=== PATIENT | female | born 1935 | race Caucasian/White ===

== ENCOUNTER 2016-03-19 07:18 | Day surgery (SDC) | payer MEDICARE, OTHER ==
[2016-03-18 15:20] LABS: HEMATOCRIT 39.2 % (36.0-48.0); MCH 31.3 pg (26.0-34.0); MCHC 33.2 g/dL (31.0-37.0); MCV 94.2 fL (80.0-100.0); MEAN PLATELET VOLUME 10.1 fL (7.4-10.4); RBC 4.16 10x6/uL (4.00-5.40); RDW 12.8 % (11.5-14.5); WBC 5.2 10x3/uL (4.8-10.8)
[~2016-03-19] VITALS: Ht 170.2 cm; Wt 71.7 kg
[~2016-03-19 07:18] MED LIST: ASCORBIC ACID500 MG PO; ELAVIL25 MG PO; FISH OIL 1,0001 CA1 PO; TENORMIN25 MG PO; VITAMIN D31000 UNI2 PO
[2016-03-19 10:19] VITALS: BP 194/95; Ht 170.2 cm; Wt 71.7 kg
--- NOTE | 2016-03-19 10:26 | NUR ---
PT VERY NERVOUSE NEW ORDER RECEIVED FOR 5MG OF VALIUM FROM DR MURPHY. PT GIVEN VALIUM ORDERED
--- NOTE | 2016-03-19 12:10 | NUR ---
1205: UNABLE TO REACH FAMILY EXT 2500,[id number],2517. TALKED TO ALLA IN OP THERE WAS NO ONE IN PT ROOM. PT STATED PRIOR TO SURGERY THAT HER MAY HAVE GONE TO GET SOMETHING TO EAT.
--- NOTE | 2016-03-19 14:57 | NUR ---
1420--IV DC'D, PT UP TO DRESS AT THIS TIME. ZACK ALVES 1446--DISCHARGE INSTRUCTIONS GIVEN, PT VERBALIZES UNDERSTANDING. PT OFF UNIT VIA WC. ZACK ALVES
--- NOTE | 2016-04-09 09:50 | OP ---
PATIENT NAME: NOE MATIAS MEDICAL RECORD: [id number] :37 LOCATION:[facility] ADMISSION DATE: SURGEON: SHAVON SMALLS DPM DATE OF OPERATION: 03/19/2016 PREOPERATIVE DIAGNOSES: 1. Plantar plate rupture, left second MPJ. 2. Hammertoe, left second digit. POSTOPERATIVE DIAGNOSES: 1. Plantar plate rupture, left second MPJ. 2. Hammertoe, left second digit. PROCEDURES: 1. Alanna osteotomy, left second metatarsal. 2. Plantar plate repair, left second MPJ. 3. PIPJ fusion, left 2nd digit. ANESTHESIA: Local with IV sedation utilizing lidocaine and Marcaine plain around the left second ray. HEMOSTASIS: Left thigh tourniquet at 350 mmHg. PREOPERATIVE DETAILS: The patient was taken to the OR and placed on the operating table in supine position. This was followed by induction of general anesthesia and infiltration of local anesthetic. The left extremity was prepped and draped in the usual aseptic technique followed by exsanguination of extremity and inflation of tourniquet. PROCEDURE NUMBER 1: Alanna osteotomy, left second digit. A 15-blade was used to create a 4 cm curvilinear incision extending from the middle of the second metatarsal shaft to the PIPJ of the second digit. The incision was deepened down through subcutaneous tissue. The extensor longus tendon was then transected in a Z fashion exposing the second MPJ. A linear capsulotomy was performed. The head of the second metatarsal was delivered. A McGlamry scoop elevator was used to free the plantar structures. A sagittal saw was then used to create a Alanna osteotomy from ____ distal to plantar proximal. The capital fragment was translocated proximal and temporarily fixated. PROCEDURE NUMBER 2: Plantar plate repair, left second MPJ. A second K-wire was placed in the shaft of the proximal phalanx of the second digit. A wire retractor was placed over the wires and the joint was distracted giving access. There was noted to be some rupture of the lateral aspect of the plantar plate. A 15 blade was used to complete the tear. A scorpion passer was then used to pass FiberWire through the plantar plate in 2 different points OF purchase 2 small drill holes were made in the base of the proximal phalanx of the second digit and the suture was passed up through the drill holes. At this time, the Alanna osteotomy as described in #1, was fixated with 2 popoff screws and the repair was complete by tying surgeon's knots with the FiberWire up through the base of the proximal phalanx of the second digit allowing excellent purchase and position of the 2nd digit at the MPJ in a nice rectus position. PROCEDURE NUMBER 3: PIPJ fusion, left 2nd digit. The incision as described in #1, was dissected down to the joint. The joint was delivered. A sagittal saw was used to resect the head of the proximal phalanx and the base of middle OPERATIVE REPORT [id number] NOE MATIAS phalanx. A 2.7 drill hole was then made in both, followed by the insertion of the bone graft with the capital fragment on top of the bone graft, noting excellent alignment and fixation on top of the bone graft. The wound was flushed. The capsule was repaired with 2-0 Vicryl. The extensor longus tendon was repaired with 4-0 Rapide. The subcutaneous tissue was repaired with 4-0 Rapide and the skin was closed with 4-0 Rapide in a subcuticular technique followed by Dermabond, Adaptic, 4 x 4 and conform were used to dress the wound followed by application of a modified Meredith compression dressing. Tourniquet was deflated. POSTOPERATIVE DETAILS: The patient tolerated the procedure well and left the OR with vital signs stable and vascular status at preoperative levels. The patient was transported to recovery per anesthesia in stable condition. TRANSINT:[id number] Voice Confirmation ID: [id number] DOCUMENT ID: [id number] SHAVON SMALLS DPM at 0950 CC: [id number] DICTATION DATE: 03/19/16 1242 PHYSICIAN RECRUITER: 03/19/16 1309 [facility] 03/19/16 [place] [id number] [place] [id number]
== END 2016-03-19 14:46 | disposition home or self-care (01) ==
LOC: D.OPS 07:18 → D.PAN 11:00 → D.OPS 11:00
PROVIDERS: Anesthesiology
DX: S93.149A Subluxation of metatarsophalangeal joint of unspecified toe(s), initial encounter (principal); M20.42 Other hammer toe(s) (acquired), left foot